=== PATIENT | male | born 1985 ===

== ENCOUNTER 2018-02-12 18:30 | Emergency (ER) | payer OTHER ==
[2018-02-12 18:41] VITALS: BP 151/91; PULSE 87; RESP 18; TEMP 98.9; O2SAT 98
--- NOTE | 2018-02-12 19:05 | ED PDOC ---
HPI: General Adult Time Seen by Provider: 02/12/18 18:46 Chief Complaint (Nursing): Cough, Cold, Congestion Chief Complaint (Provider): sore throat, cough, congestion History Per: Patient History/Exam Limitations: no limitations Onset/Duration Of Symptoms: Days (x1 week) Current Symptoms Are (Timing): Still Present Additional Complaint(s): Abdulkadir Fenton is a 33 year old male, with no significant past medical history, who presents to the emergency department complaining of productive cough with phlegm, congestion and headache onset for x1 week. Patient states symptoms are associated with chest tightness. He took cough medication without relief of symptoms. He denies any fever, chills or other medical complaints. PMD: Teodoro Govea Past Medical History Reviewed: Historical Data, Nursing Documentation, Vital Signs Vital Signs: Last Vital Signs Temp 98.9 F 02/12/18 18:38 Pulse 87 02/12/18 18:38 Resp 18 02/12/18 18:38 BP 151/91 H 02/12/18 18:38 Pulse Ox 98 02/12/18 19:18 - Medical History PMH: No Chronic Diseases - Surgical History Surgical History: No Surg Hx - Family History Family History: States: No Known Family Hx - Living Arrangements Living Arrangements: With Family - Social History Current smoker - smoking cessation education provided: Yes Alcohol: None Drugs: Denies - Home Medications Home Medications: Ambulatory Orders Medication Instructions Recorded Albuterol HFA [Ventolin HFA 90 1 puff IH Q6 PRN #1 inhaler 02/12/18 mcg/actuation (8 g)] Azithromycin [Zithromax] 250 mg PO DAILY #6 tab 02/12/18 Benzonatate 200 mg PO TID PRN #20 capsule 02/12/18 - Allergies Allergies/Adverse Reactions: Allergies Allergy/AdvReac Type Severity Reaction Status Date / Time No Known Allergies Allergy Verified 02/12/18 18:38 Review of Systems ROS Statement: Except As Marked, All Systems Reviewed And Found Negative Constitutional: Negative for: Fever, Chills ENT: Positive for: Nose Congestion, Throat Pain Respiratory: Positive for: Cough (productive) Gastrointestinal: Negative for: Nausea, Vomiting Neurological: Positive for: Headache. Negative for: Dizziness Physical Exam - Reviewed Nursing Documentation Reviewed: Yes Vital Signs Reviewed: Yes - Physical Exam Appears: Positive for: Well, Non-toxic, No Acute Distress Head Exam: Positive for: ATRAUMATIC, NORMOCEPHALIC Skin: Positive for: Normal Color. Negative for: Rash Eye Exam: Positive for: Normal appearance, EOMI, PERRL ENT: Positive for: Tonsillar Swelling (bilateral tonsillar edema and erythema) Neck: Positive for: Painless ROM Cardiovascular/Chest: Positive for: Regular Rate, Rhythm. Negative for: Murmur Respiratory: Positive for: Normal Breath Sounds. Negative for: Wheezing, Respiratory Distress Back: Negative for: L CVA Tenderness, R CVA Tenderness Extremity: Positive for: Normal ROM (upper and lower extremities). Negative for: Deformity, Swelling Neurologic/Psych: Positive for: Alert, Oriented, Gait (steady) - ECG O2 Sat by Pulse Oximetry: 98 (RA) Pulse Ox Interpretation: Normal Medical Decision Making Medical Decision Making: Time: 18:46 Initial Impression: URI Initial Plan: -Patient declined pain medication Upon provider evaluation patient is medically stable, and requires no further treatment in the ED at this time. Patient will be discharged home with Rx for Zithromax, Tessalon Perles and inhaler. Patient instructed to take NSAIDs for fever and body aches. Counseling was provided and all questions were answered regarding diagnosis. There is agreement to discharge plan. Return if symptoms persist or worsen. Scribe Attestation: Documented by Samson Miller, acting as a scribe for Vanita Hackett PA-C Provider Scribe Attestation: All medical record entries made by the Scribe were at my direction and personally dictated by me. I have reviewed the chart and agree that the record accurately reflects my personal performance of the history, physical exam, medical decision making, and the department course for this patient. I have also personally directed, reviewed, and agree with the discharge instructions and disposition. Disposition - Clinical Impression Clinical Impression: Upper respiratory infection - Patient ED Disposition Is Patient to be Admitted: No Counseled Patient/Family Regarding: Diagnosis, Need For Followup, Rx Given, Smoking Cessation - Disposition Referrals: Teodoro Govea MD [Family Provider] - Disposition: Routine/Home Disposition Time: 19:44 Condition: STABLE Additional Instructions: Take prescription meds as directed. Take [id number] Tylenol and Motrin for fever and body aches. Rest and drink plenty of fluids. Follow-up with primary doctor in 2-3 days. Try to stop smoking!! Prescriptions: Albuterol HFA [Ventolin HFA 90 mcg/actuation (8 g)] 1 puff IH Q6 PRN #1 inhaler PRN Reason: Cough Azithromycin [Zithromax] 250 mg PO DAILY #6 tab Benzonatate 200 mg PO TID PRN #20 capsule PRN Reason: Cough Instructions: Bacterial Upper Respiratory Infection, Adult, Quitting Smoking, Sore Throat in Adults Forms: [facility] ([place]), [facility] ED School/Work Excuse
== END 2018-02-12 20:20 | disposition home or self-care (01) ==
LOC: MERGE 18:30 → H.ER 18:30
DX: J06.9 Acute upper respiratory infection, unspecified (principal)